=== PATIENT | male | born 1980 | race Asian ===

== ENCOUNTER 2021-05-05 00:28 | Emergency (ER) | payer OTHER ==
[~2021-05-05] VITALS: Ht 175.3 cm; Wt 87.1 kg
--- NOTE | 2021-05-05 01:20 | NUR ---
PT PROVIDED WITH WARM BLANKETS
[2021-05-05] MEDS ORDERED: ACETAMINOPHEN ES 500 MG TABLET PO ONE (01:30)
[2021-05-05] MEDS ORDERED: ASPIRIN 81 MG TAB.CHEW PO ONE (01:30)
--- NOTE | 2021-05-05 01:40 | NUR ---
pt bibself c/o chest pain and difficulty breathing sob x11 days.hx of positive covid test. covid vaccinated x2. pt is aaox4. pt breathing is unlabored at this time. on room air o2sat 97% pt connected to monitor. vss at this time.
[2021-05-05 01:48] LABS: BASOPHILS # (AUTO) 0.1 K/uL (0.0-0.2); BASOPHILS % (AUTO) 0.6 % (0.0-2.0); EOSINOPHILS % (AUTO) 1.2 % (0.0-6.0); HEMATOCRIT 46 % (39-51); HEMOGLOBIN 15.7 g/dL (13.5-17.5); LYMPHOCYTES # (AUTO) 2.5 K/uL (0.8-4.8); LYMPHOCYTES % (AUTO) 25.4 % (20.0-44.0); MEAN CORPUSCULAR HGB CONC 34 g/dl (31.0-36.0); MEAN CORPUSCULAR VOLUME 89 fL (80-96); MONOCYTES # (AUTO) 0.7 K/uL (0.1-1.30); MONOCYTES % (AUTO) 7.6 % (2.0-12.0); NEUTROPHILS # (AUTO) 6.3 K/uL (1.8-8.9); NEUTROPHILS % (AUTO) 65.2 % (43.0-81.0); PLATELET COUNT (AUTO) 339 K/uL (150-450); RED BLOOD CELL COUNT(AUTO) 5.16 MIL/uL (4.5-6.0); WHITE BLOOD COUNT (AUTO) 9.7 K/uL (4.3-11.0)
[2021-05-05 01:56] LABS: CALCIUM, SERUM 8.8 mg/dL (8.5-10.1); CARBON DIOXIDE 30 mmol/L (21-32); CHLORIDE 104 mmol/L (98-107); CREATININE 0.9 mg/dL (0.6-1.3); GLUCOSE 100 mg/dL (74-106); POTASSIUM 3.5 mmol/L (3.5-5.1); SODIUM SERUM 141 mmol/L (136-145); UREA NITROGEN, BLOOD 12 mg/dL (7-18)
--- NOTE | 2021-05-05 01:58 | NUR ---
pt placed on 2L of o2 for comfort, pt verbalizes feeling better. o2 sat is 100% at this time
[2021-05-05 02:03] LABS: ALANINE AMINOTRANSFERASE 95 U/L (12-78); ALBUMIN 4.1 g/dL (3.4-5.0); ALKALINE PHOSPHATASE 90 U/L (46-116); ASPARTATE AMINOTRANSFERASE 34 U/L (15-37); BILIRUBIN,DIRECT 0.2 mg/dL (0.0-0.2); BILIRUBIN,TOTAL 0.7 mg/dL (0.2-1.0); TOTAL PROTEIN, SERUM 7.8 g/dL (6.4-8.2)
[2021-05-05] MEDS ORDERED: ACETAMINOPHEN ES 500 MG TABLET ONE (02:07)
[2021-05-05] MEDS ORDERED: ASPIRIN 81 MG TAB.CHEW ONE (02:08)
--- NOTE | 2021-05-05 03:18 | NUR ---
pt is able to ambulate independently off oxygen, has steady gait.
[2021-05-05] MEDS ORDERED: LORAZEPAM INJ 2 MG/ML VIAL ONE (03:27)
[2021-05-05] MEDS ORDERED: LORAZEPAM INJ 2 MG/ML VIAL IV ONE (03:30)
--- NOTE | 2021-05-05 03:37 | NUR ---
pt has periods of increased heart rate up to 104, pt anxious. informed md, ativan 0.5mg adminstered as ordered.
--- NOTE | 2021-05-05 04:41 | NUR ---
Patient is resting comfortably in bed with eyes closed. Easily aroused. VSS
[2021-05-05 06:05] VITALS: BP 148/88
--- NOTE | 2021-05-05 06:08 | NUR ---
Patient discharged to home in stable condition. Written and verbal after care instructions given. Patient verbalizes understanding of instruction. IV removed. Catheter intact and site benign. Pressure and 4x4 applied to site. No bleeding noted.
== END 2021-05-05 06:06 | disposition home or self-care (01) ==
LOC: ER 00:28
DX: R07.89 Other chest pain (principal)
CPT/HCPCS: 36415; 71045; 80048; 80076; 83880; 84484 ×2; 85025; 93005; 96374; 99285; J2060

== ENCOUNTER 2021-05-06 19:12 | Emergency (ER) | payer OTHER ==
[~2021-05-06] VITALS: Ht 175.3 cm; Wt 88.0 kg
--- NOTE | 2021-05-06 19:32 | NUR ---
PT BIBS FOR C/O DIFFICULATY BREATHING. WAS EXPOSED TO CARBON MONOXIDE. SATTING 96% ON R/A. A/OX4. AMBULATORY
--- NOTE | 2021-05-06 20:12 | NUR ---
RECORD LIBRARIAN AT BEDSIDE FOR CXR
--- NOTE | 2021-05-06 20:42 | NUR ---
PT ON O2 15L VIA NRB; TOLERATING WELL. O2SAT 97%
[2021-05-06 21:10] LABS: ABG BASE EXCESS 0.2 mmol/L; ABG PCO2 30.9 mmHg (35.0-45.0); ABG PH 7.483 (7.350-7.450); ABG PO2 398.5 mmHg (75.0-100.0); AaDO2 283.6 mmHg; COHb 0.3 % (0.5-1.5); MetHb 0.4 % (0.0-1.5); O2Hb 98.3 % (94.0-97.0); SITE, ABG Other
--- NOTE | 2021-05-06 21:48 | NUR ---
Patient discharged to home in stable condition. Written and verbal after care instructions given. Patient verbalizes understanding of instruction. pt ambulatory
[2021-05-06 21:54] VITALS: BP 119/82
== END 2021-05-06 21:48 | disposition home or self-care (01) ==
LOC: ER 19:14
DX: Z77.098 Contact with and (suspected) exposure to other hazardous, chiefly nonmedicinal, chemicals (principal); F41.9 Anxiety disorder, unspecified; Z60.2 Problems related to living alone
CPT/HCPCS: 36600; 71045-TC